=== PATIENT | male | born 1975 | race African-American/Black ===

== ENCOUNTER 2017-07-17 05:52 | Emergency (ER) | payer OTHER, MEDICARE ==
--- NOTE | 2017-07-17 05:58 | ED GI/GU/ABDOMINAL COMPLAINT ---
History of Present Illness General Chief Complaint: Abdominal Pain/Flank Pain Stated Complaint: " BIBA PER EMS ABD PAIN" Source: patient, EMS Exam Limitations: no limitations Vital Signs & Intake/Output Vital Signs & Intake/Output Vital Signs Date Time Temp Pulse Resp B/P B/P Pulse O2 O2 Flow FiO2 Mean Ox Delivery Rate 07/17 0941 97.2 07/17 0935 97.2 76 18 112/70 99 Room Air 07/17 0556 96.4 104 22 129/88 94 Room Air Allergies Coded Allergies: shrimp (Severe, ANAPHYLAXIS 07/17/17) Beef Containing Products (UNKNOWN 07/17/17) pork derived (porcine) (UNKNOWN 07/17/17) Triage Nurses Notes Reviewed? yes HPI: Patient Niyah [place] when he had to hide puller secondary to severe abdominal pain. Patient states the pain started earlier this evening with gradual onset. The pain is periumbilical and radiates out to the rest of his abdomen. The pain is constant. The pain is sharp and stabbing in nature. Patient denies any aggravating or mitigating factors. Positive nausea but no vomiting. No constipation or diarrhea. No dysuria or hematuria. Patient denies any fevers or chills. Patient was given 4 mg IV Zofran by EMS as well as 200 g of IV fentanyl. Patient states the fentanyl did not help the pain at all. (Demetrius RAMIREZ,Naresh Graff) Reconcile Medications Fexofenadine HCl ([place] Allergy) 180 MG TABLET 1 TAB PO DAILY ALLERGIES ( Reported) Hydroxyzine Hydrochloride (Atarax) 25 MG TAB 1 TAB PO TID PRN ITCHING ( Reported) (Cat RAMIREZ,Kalyan Feldman) Past History Travel History Traveled to [place] past 21 day No Medical History Any Pertinent Medical History? see below for history Gastrointestinal: GERD Surgical History Surgical History: non-contributory Psychosocial History Tobacco Use: Current Daily Use Daily Tobacco Use Amount/Type: => 5 Cigarettes daily ETOH Use: occasional use Illicit Drug Use: denies illicit drug use Family History Hx Contributory? No (Demetrius RAMIREZ,Naresh Graff) Review of Systems Review of Systems Constitutional: Reports: no symptoms. EENTM: Reports: no symptoms. Respiratory: Reports: no symptoms. Cardiovascular: Reports: no symptoms. GI: Reports: see HPI, abdominal pain, nausea. Genitourinary: Reports: no symptoms. Musculoskeletal: Reports: no symptoms. Skin: Reports: no symptoms. Neurological/Psychological: Reports: no symptoms. Hematologic/Endocrine: Reports: no symptoms. Immunologic/Allergic: Reports: no symptoms. All Other Systems: Reviewed and Negative (Demetrius RAMIREZ,Naresh Graff) Physical Exam Physical Exam General Appearance: well developed/nourished, alert, awake, anxious, severe distress Head: atraumatic Eyes: Bilateral: PERRL, EOMI. Ears, Nose, Throat, Mouth: hearing grossly normal, DRY MUCUS MEMBRANES Neck: normal inspection, supple, full range of motion Respiratory: normal breath sounds, chest non-tender, no respiratory distress, lungs clear Cardiovascular: regular rate/rhythm, normal peripheral pulses Gastrointestinal: normal bowel sounds, soft, no organomegaly, guarding, tenderness Back: normal inspection, normal range of motion Extremities: normal range of motion Neurologic/Psych: no motor/sensory deficits, awake, alert, oriented x 3, normal gait Skin: intact, normal color, warm/dry Core Measures ACS in differential dx? No Sepsis Present: No Sepsis Focused Exam Completed? No (Demetrius RAMIREZ,Naresh Graff) Progress Differential Diagnosis: AMI, appendicitis, bowel obstruction, cholecystitis, diverticulitis, gastritis, hepatitis, ischemic bowel, inflamm bowel dis, pancreatitis, peptic ulcer, PUD/GERD, ureterolithiasis Plan of Care: Orders Procedure Date/time Status LACTIC ACID 07/17 0652 Complete EKG 07/17 0645 Active Add-on Test (ER Only) 07/17 0642 Active TROPONIN LEVEL 07/17 0616 Complete URINALYSIS 07/17 05 Complete LIPASE 07/17 0555 Complete ETHANOL 07/17 0555 Complete COMPREHENSIVE METABOLIC PANEL 07/17 05 Complete CBC WITHOUT DIFFERENTIAL 07/17 05 Complete AMYLASE 07/17 0555 Complete Laboratory Tests 07/17/17 0731: Lactic Acid 1.0 07/17/17 0640: Urine Color YEL, Urine Clarity CLEAR, Urine pH 6.0, Ur Specific [place] 1.010, Urine Protein NEG, Urine Ketones NEG, Urine Nitrite NEG, Urine Bilirubin NEG, Urine Urobilinogen 0.2, Ur Leukocyte Esterase NEG, Ur Microscopic EXAM NOT REQUIRED, Urine Hemoglobin NEG, Urine Glucose NEG 07/17/17 0616: Anion Gap 7, Estimated GFR > 60, BUN/Creatinine Ratio 13.0, Glucose 107 H, Calcium 8.7, Total Bilirubin 0.4, AST 21, ALT 29, Alkaline Phosphatase 53, Troponin I < 0.01, Total Protein 6.3, Albumin 3.6, Globulin 2.7, Albumin/ Globulin Ratio 1.3, Amylase 62, Lipase 103, CBC w Diff NO MAN DIFF REQ, RBC 5.01 , MCV 90.4, MCH 29.9, MCHC 33.1, RDW 14.4, MPV 7.9, Gran % 55.7, Lymphocytes % 30.4, Monocytes % 11.1 H, Eosinophils % 2.0, Basophils % 0.8, Absolute Granulocytes 2.9, Absolute Lymphocytes 1.6, Absolute Monocytes 0.6, Absolute Eosinophils 0.1, Absolute Basophils 0, Serum Alcohol < 10.0 Diagnostic Imaging: Viewed by Me: CT Scan. Discussed w/RAD: CT Scan. Initial ED EKG: NSR, nonspecific ST T wave chg Hand-Off Endorsed To: Cat RAMIREZ,Kalyan Feldman Endorsed Time: 0700 Pending: CT, labs (Demetrius RAMIREZ,Naresh Graff) Radiology Impression: PATIENT: GREG COLÓN PRESENT AGE: 42 PATIENT ACCOUNT NO: [id number] : 75 LOCATION: [facility] ORDERING PHYSICIAN: Kalyan Shelton MD SERVICE DATE: 07/17/17 EXAM TYPE: CAT - CT ABD & PELVIS W/O IV CONTRAS EXAMINATION: CT ABDOMEN AND PELVIS WITHOUT CONTRAST CLINICAL INFORMATION: Severe, diffuse abdominal pain COMPARISON: None TECHNIQUE: Multidetector volumetric imaging was performed from the superior aspect of the liver through the pubic symphysis. Sagittal and coronal reformatted images were obtained on the technologist's workstation. DLP: 278.97 mGy-cm FINDINGS: LUNG BASES: There is a 3 mm left lower lobe nodule on image 4/ 92. There is a 7 mm right lower lobe nodule on image 2/92. An additional perivascular nodule is suspected in the right lower lobe measuring 5 mm on image 5/92. LIVER, GALLBLADDER, AND BILIARY TREE: The liver is normal in size, shape, and attenuation. No focal hepatic lesion or biliary ductal dilatation is present. Patient is status post cholecystectomy. PANCREAS: Unremarkable. SPLEEN: Unremarkable. ADRENAL GLANDS: Unremarkable. KIDNEYS AND URETERS: The kidneys are normal in size, shape, and attenuation. No hydronephrosis, hydroureter, or calculi seen. No perinephric stranding. BLADDER: Unremarkable. GASTROINTESTINAL TRACT: There is a moderate amount of stool throughout much of the colon. No evidence of bowel obstruction. No abnormal bowel wall thickening or pericolonic inflammation is seen. The appendix is unremarkable. No free fluid or free air is seen. ABDOMINAL WALL: No significant hernia is appreciated. LYMPH NODES: Normal. VASCULAR: Unremarkable. PELVIC VISCERA: Unremarkable. OSSEOUS STRUCTURES: Unremarkable. IMPRESSION: 1. No acute findings identified in the abdomen/ pelvis. Moderate volume of stool. 2. Few bibasilar lung nodules as described above, measuring up to 7 mm. These are nonspecific and may be chronic and/or infectious/inflammatory in etiology. In the proper clinical setting, this appearance could also be seen with lung metastases. According to the UPDATED 2017 Fleischner Society recommendations, the advised follow-up imaging for multiple solid nodules, the largest measuring 6 mm or greater, is: LOW RISK PATIENT: CT at 3-6 months, then consider CT at 18-24 months. HIGH RISK PATIENT: CT at 3-6 months, then at 18-24 months. DICTATED BY: Alvarado Cortez MD DATE/ TIME DICTATED:07/17/17813 TELECOMMUNICATION LINES REPAIRER:MARY DATE/TIME TRANSCRIBED: 07/17/17813 CONFIDENTIAL, DO NOT COPY WITHOUT APPROPRIATE AUTHORIZATION. < Electronically signed in Other Vendor System> SIGNED BY: Alvarado Cortez MD 07/17/17826 Comments: 07/17/2017 7:23:38 AM patient signed out to me by Dr. Romo at shift loom changer. 07/17/2017 7:53:50 AM given the patient's moderate reaction to shellfish PTS CT scan converted to noncontrast. 07/17/2017 9:18:00 AM I have updated DACHA on test results. He states his pain is now a 5-6/10. He admits to having at least 5 prior episodes similar to this that have resolved spontaneously. He states they've been loosely attributed it to food allergies including beef. These episodes typically spontaneously resolved within 12 hours but can be quite severe. He has never seen a GI specialist. (Cat RAMIREZ,Kalyan Feldman) Departure Departure Condition: Stable (Demetrius RAMIREZ,Naresh Graff) Departure Disposition: HOME OR SELF CARE Clinical Impression Primary Impression: Generalized abdominal pain Secondary Impressions: Pulmonary nodules Additional Instructions: Levsin as needed for abdominal pain. Add Percocet if necessary. Clear liquids if nauseous but otherwise diet as tolerated. Follow-up with your primary care physician for gastrointestinal specialty referral this week and to schedule a repeat lung CAT scan in 3 months to reevaluate the lung nodules seen. Return if any concerns or sudden worsening. Please note that there might be incidental findings in your evaluation that are unrelated to the current emergency department visit. Please notify your primary care doctor about this emergency department visit in order to obtain and review all of the testing performed so that these incidental findings can be monitored as needed. If you had an x-ray performed, please understand that some fractures may not be seen on the initial set of x-rays. If your symptoms persist you might need a repeat set of x-rays to check for such a fracture. If you had a laceration evaluated, please understand that foreign bodies such as glass or wood may not be visible to the naked eye or on plain x-rays. If the wound becomes red, swollen, increasingly more painful or if there is any drainage from the wound, please have it reevaluated by a physician for the possibility of a retained foreign body. If you're unable to follow up as outlined in the discharge instructions please return to the emergency department. Thank you for choosing the [facility] Emergency Department for your care. It was a pleasure to serve you today. Kalyan Shelton M.D. [facility] Departure Forms: Customer Survey General Discharge Information Prescriptions: Current Visit Scripts Hyoscyamine (Levsin) 1-2 TAB PO Q6P PRN ABDOMINAL CRAMPS #20 TAB Oxycodone HCl/Acetaminophen (Percocet 5-325 MG Tablet) 1 TAB PO Q6P PRN pain #5 TAB (Cat RAMIREZ,Kalyan Feldman) Critical Care Note Critical Care Note Critical Care Time: 30-74 min (Cat RAMIREZ,Kalyan Feldman)
[2017-07-17 06:24] LABS: ABSOLUTE BASOPHIL COUNT 0 /CUMM (0.0-0.2); ABSOLUTE EOSINOPHIL COUNT 0.1 /CUMM (0.0-0.7); ABSOLUTE GRANULOCYTE CT 2.9 /CUMM (1.4-6.5); ABSOLUTE LYMPH COUNT 1.6 /CUMM (1.2-3.4); ABSOLUTE MONOCYTE COUNT 0.6 /CUMM (0.10-0.60); BASOPHIL % 0.8 % (0.0-2.0); GRANULOCYTE % 55.7 % (42.2-75.2); HEMATOCRIT 45.3 % (42-52); MEAN CORPUSCULAR HGB 29.9 PG (27.0-31.0); MEAN CORPUSCULAR HGB CONC 33.1 G/DL (33.0-37.0); MEAN CORPUSCULAR VOLUME 90.4 FL (80.0-94.0); MEAN PLATELET VOLUME 7.9 FL (7.4-10.4); PLATELET COUNT 233 /CUMM (130-400); RBC DISTRIBUTION WIDTH 14.4 % (11.5-14.5); RED BLOOD CELL CT 5.01 /CUMM (4.70-6.10); WHITE BLOOD CELL COUNT 5.1 /CUMM (4.8-10.8)
--- NOTE | 2017-07-17 08:27 | CT SCAN REPORT ---
EXAMINATION: CT ABDOMEN AND PELVIS WITHOUT CONTRAST CLINICAL INFORMATION: Severe, diffuse abdominal pain COMPARISON: None TECHNIQUE: Multidetector volumetric imaging was performed from the superior aspect of the liver through the pubic symphysis. Sagittal and coronal reformatted images were obtained on the technologist's workstation. DLP: 278.97 mGy-cm FINDINGS: LUNG BASES: There is a 3 mm left lower lobe nodule on image 4/92. There is a 7 mm right lower lobe nodule on image 2/92. An additional perivascular nodule is suspected in the right lower lobe measuring 5 mm on image 5/92. LIVER, GALLBLADDER, AND BILIARY TREE: The liver is normal in size, shape, and attenuation. No focal hepatic lesion or biliary ductal dilatation is present. Patient is status post cholecystectomy. PANCREAS: Unremarkable. SPLEEN: Unremarkable. ADRENAL GLANDS: Unremarkable. KIDNEYS AND URETERS: The kidneys are normal in size, shape, and attenuation. No hydronephrosis, hydroureter, or calculi seen. No perinephric stranding. BLADDER: Unremarkable. GASTROINTESTINAL TRACT: There is a moderate amount of stool throughout much of the colon. No evidence of bowel obstruction. No abnormal bowel wall thickening or pericolonic inflammation is seen. The appendix is unremarkable. No free fluid or free air is seen. ABDOMINAL WALL: No significant hernia is appreciated. LYMPH NODES: Normal. VASCULAR: Unremarkable. PELVIC VISCERA: Unremarkable. OSSEOUS STRUCTURES: Unremarkable. IMPRESSION: 1. No acute findings identified in the abdomen/pelvis. Moderate volume of stool. 2. Few bibasilar lung nodules as described above, measuring up to 7 mm. These are nonspecific and may be chronic and/or infectious/inflammatory in etiology. In the proper clinical setting, this appearance could also be seen with lung metastases. According to the UPDATED 2017 Fleischner Society recommendations, the advised follow-up imaging for multiple solid nodules, the largest measuring 6 mm or greater, is: LOW RISK PATIENT: CT at 3-6 months, then consider CT at 18-24 months. HIGH RISK PATIENT: CT at 3-6 months, then at 18-24 months.
[2017-07-17] MEDS ORDERED: HYDROXYZINE HCL25 M2 PO (08:53)
[2017-07-17] MEDS ORDERED: ALLEGRA ALLERG180 M1 PO (08:55)
[2017-07-17 09:35] VITALS: BP 112/70
[2017-07-17] MEDS ORDERED: PERCOCET 5-3251 EACH PO (09:47)
[2017-07-17] MEDS ORDERED: LEVSIN0.125 M1 PO (09:47)
== END 2017-07-17 09:55 ==
LOC: ERH 05:52
PROVIDERS: Emergency Medicine
DX: R91.1 Solitary pulmonary nodule (principal); R10.84 Generalized abdominal pain
CPT/HCPCS: 74176; 81003; 93005; 93010; 96365; 96375; 96376; G0480; J0131; J1885